=== PATIENT | female | born 1950 | race Caucasian/White ===

== ENCOUNTER 2019-12-12 16:35 | Emergency (ER) | payer MEDICARE ==
[~2019-12-12] VITALS: Ht 180.3 cm; Wt 131.5 kg
[2019-12-12 16:41] VITALS: BP_SYST 163
[2019-12-12 18:30] VITALS: BP_SYST 127
== END 2019-12-12 18:29 | disposition home or self-care (01) ==
LOC: SED 16:35
DX: S52.121A Displaced fracture of head of right radius, initial encounter for closed fracture (principal); Z90.49 Acquired absence of other specified parts of digestive tract; W18.39XA Other fall on same level, initial encounter; Y93.89 Activity, other specified; Y92.89 Other specified places as the place of occurrence of the external cause; Y99.8 Other external cause status
CPT/HCPCS: 99283